=== PATIENT | female | born 1950 | race Caucasian/White ===

== ENCOUNTER 2017-01-27 09:07 | Inpatient (IN) | payer OTHER ==
[~2017-01-27 09:07] MED LIST: BUPIVACAINE HCL/PF 0.5% (5MG/ML) 10 ML VIAL IJ ONE
[2017-01-27 09:14] VITALS: BMI 52.4
[2017-01-27] MEDS ORDERED: ACETAMINOPHEN INJECTION 100 ML IVPB ONE ×2 (09:44→23:00)
[2017-01-27] MEDS ORDERED: morphine CARPU-JECT 4 MG/1 ML DISP.SYRIN IVPUSH ONE ×2 (09:47→11:36)
[2017-01-27] MEDS ORDERED: ONDANSETRON 4 MG/2 ML VIAL IVPUSH ONE (09:51)
[2017-01-27] MEDS ORDERED: SODIUM CHLORIDE 0.9% 1000 ML INFUS.BAG IV ONE ×2 (09:51→12:40)
[2017-01-27 09:56] LABS: MCH 29.5 pg (25.7-33.7); MCHC 34.6 g/dl (32.0-36.0); MEAN CELL VOLUME 85.3 fl (80-96); MEAN PLT VOLUME 9.2 fl (7.5-11.1); NEUTROPHILS 81.5 % (42.8-82.8); PLATELET COUNT 221 K/MM3 (134-434); RDW 14.6 % (11.6-15.6); WHITE BLOOD COUNT 13.3 K/mm3 (4.0-10.8)
--- NOTE | 2017-01-27 09:59 | PDOC ---
History of Present Illness - General Chief Complaint: Pain, Acute Stated Complaint: abd pain Time Seen by Provider: 01/27/17 09:11 History Source: Patient Exam Limitations: No Limitations - History of Present Illness Initial Comments: 01/27/17 09:55 The patient is a 66F with a PMH of DM who presents with abdominal pain. The patient states that she had 4 day old telugu food on Friday and subsequently felt worse. She states that she had breakfast Friday and felt fine, then around 2 pm she began to pee a lot and was passing solid stool. Soon after this , she began having diarrhea and was vomiting everything that she tried to eat/ drink. She was unable to swallow her meds. LBM last night, has not been passing gas. She has no sick contacts and no recent travel. Surg: omental mass removal in 2011 All: NKDA, father w/ severe reaction to PCN Social: does not smoke, drink, use recreational drugs; lives alone Severity: mild Past History - Past Medical History Allergies/Adverse Reactions: Allergies Allergy/AdvReac Type Severity Reaction Status Date / Time Penicillins Allergy Unknown Verified 01/27/17 16:52 Home Medications: Ambulatory Orders Aspirin Coated [Ecotrin] 325 mg PO DAILY 03/24/12 Losartan Potassium 50 mg PO DAILY 04/06/12 Metformin HCl [Glucophage] 1,000 mg PO BID 04/06/12 D3-5000 5,000 iu PO DAILY 01/27/17 Anemia: No Asthma: No Cancer: Yes (ABDOMINAL GROWTH) Cardiac Disorders: No CVA: No COPD: No CHF: No Dementia: No Diabetes: Yes GI Disorders: Yes (ABDOMINAL LESION) Disorders: No HTN: Yes Hypercholesterolemia: No Liver Disease: No Seizures: No Thyroid Disease: No - Surgical History Abdominal Surgery: Yes (HERNIA REPAIRED AND CANCEROUS GROWTH REMOVED FROM FATTY TISSUE IN ABDOMEN) Appendectomy: No Cardiac Surgery: No Cholecystectomy: No Lung Surgery: No Neurologic Surgery: No Orthopedic Surgery: No - Psycho/Social/Smoking Cessation Hx Anxiety: No Suicidal Ideation: No Smoking Status: No Smoking History: Former smoker Have you smoked in the past 12 months: No Number of Cigarettes Smoked Daily: 0 If you are a former smoker, when did you quit?: 42 YEARS Information on smoking cessation initiated: No Hx Alcohol Use: No Drug/Substance Use Hx: No Substance Use Type: None Hx Substance Use Treatment: No Review of Systems - Review of Systems Able to Perform ROS?: Yes Is the patient limited French proficient: No Constitutional: Yes: Chills, Fever. No: Night Sweats Respiratory: No: Cough, Shortness of Breath, Productive cough Cardiac (ROS): No: Chest Pain, Lightheadedness ABD/GI: Yes: Diarrhea, Nausea, Vomiting, Abdominal cramping. No: Constipated, Difficulty Swallowing : Yes: Other (polyuria). No: Burning, Dysuria, Discharge Neurological: No: Headache, Numbness, Tingling, Weakness *Physical Exam - Vital Signs Last Vital Signs Temp Pulse Resp BP Pulse Ox 98.1 F 92 H 20 156/95 95 01/27/17 09:08 01/27/17 09:43 01/27/17 09:43 01/27/17 09:43 01/27/17 09:43 - Physical Exam General Appearance: Yes: Nourished, Mild Distress, Obese HEENT: positive: Normal Voice, Hearing Grossly Normal Respiratory/Chest: positive: Lungs Clear, Normal Breath Sounds. negative: Chest Tender, Respiratory Distress, Accessory Muscle Use Cardiovascular: positive: Regular Rhythm, S1, S2, Tachycardia. negative: Diastolic Murmur, Systolic Murmur Gastrointestinal/Abdominal: positive: Tender, Tenderness, Other (R periumbilical mass that is tender. Tenderness on McBurney's point. RUQ diffuse tenderness.). negative: Flat, Soft, Distended, Guarding, Rebound Extremity: positive: Pedal Edema (2+ b/l LE), Swelling. negative: Calf Tenderness Integumentary: positive: Warm, Clammy Neurologic: positive: Fully Oriented, Alert, Normal Mood/Affect, Motor Strength 5/5 ED Treatment Course - LABORATORY CBC & Chemistry Diagram: 01/29/17 07:20 01/29/17 07:20 - ADDITIONAL ORDERS Additional order review: Laboratory Results 01/27/17 09:18 POC Glucometer [id number] 01/27/17 09:18 POC Glucometer [id number] - RADIOLOGY Radiology Studies Ordered: Category Date Time Status CHEST X-RAY PORTABLE* [RAD] Stat Radiology 01/27/17 09:47 Ordered Medical Decision Making - Medical Decision Making 01/27/17 10:02 The patient is a 66F with a PMH of DM who presents with abdominal pain. Fingerstick is 248. The patient has diffuse tenderness in her abdomen, particularly over the mass in her L periumbilical abdomen, McBurney's point, and the RUQ. I have ordered labs and imaging and will reassess the patient when these return. 01/27/17 10:37 WBC Count 13.3. Cr WNL, will order abd and pelvis CT w/ IV contrast. 01/27/17 12:[address] abd shows hernia that is questionably incarcerated. Dr. Fritz wanted Dr. Foster called for the gen surg consult. Call has been placed. 01/27/17 13:[address] Foster again[address] Beaulieu who is technology methodology consultant was paged. 01/27/17 13:23 I have paged the surgeon technology methodology consultant, Dr. Jimenez. *DC/Admit/Observation/Transfer Diagnosis at time of Disposition: Hernia - Discharge Dispostion Condition at time of disposition: Stable Admit: Yes - Referrals
[2017-01-27] MEDS ORDERED: ONDANSETRON 4 MG/2 ML VIAL ONE ×3 (10:01→22:12)
[2017-01-27] MEDS ORDERED: morphine CARPU-JECT 4 MG/1 ML DISP.SYRIN ONE ×3 (10:01→11:49)
[2017-01-27 10:05] LABS: ALBUMIN 3.8 g/dl (3.5-5.0); ALK PHOS 72 U/L (32-92); ANION GAP 10 (8-16); BILIRUBIN,TOTAL 1.1 mg/dl (0.2-1.0); CALCIUM 9.8 mg/dl (8.4-10.2); CO2 31 mmol/L (22-28); CREATININE 0.8 mg/dl (0.6-1.3); GLUCOSE,RANDOM 252 mg/dl (74-106); SGOT/AST 31 U/L (10-42); SGPT/ALT 25 U/L (10-40); TOT PROT 7.2 g/dl (6.4-8.3)
[2017-01-27 11:03] LABS: TROPONIN I (DFP) 0.03 ng/ml (0.03-0.50)
--- NOTE | 2017-01-27 11:10 | PDOC ---
Attending Attestation - Resident Resident Name: Jordi Stinson - ED Attending Attestation I have performed the following: I have examined & evaluated the patient, The case was reviewed & discussed with the resident, I agree w/resident's findings & plan, Exceptions are as noted - HPI HPI: 01/27/17 11:07 Agree with the resident's HPI as documented in the electronic medical record. - Physicial Exam PE: 01/27/17 11:07 Agree with the resident's physical examination as documented in the electronic medical record. - Medical Decision Making 01/27/17 11:08 66-year-old female with history of diabetes, hypertension and an omental mass removed in 2011 who presents the emergency Department with complaints of 3 day history of nausea, vomiting and diarrhea with obstipation since midnight; of note the oxygen saturation is 92% on room air. Physical exam is significant for a mid abdominal mass and diffuse tenderness. Differential diagnosis includes but is not limited to: Incarcerated hernia, malignancy, abscess, gastroenteritis , colitis, diverticulitis, Colace cystitis, dehydration, DKA, toxic/metabolic derangement, electrolyte abnormality, atypical presentation of ACS. Plan: 1. Labs 2. Urine analysis 3. Chest x-ray 4. CT scan of abdomen and pelvis 5. IV fluids for hydration 6. Antiemetics 7. Pain management 8. EKG 9. Observe and reevaluate 01/27/17 13:33 Addendum: Labs were reviewed and are noted inthe EMR. CT scan of the abdomen and pelvis reveals a large hernia not seen on prior CT scan. PCP has been called and Dr. Foster requested however we are haviong some difficulty getting in touch with Dr. Foster in spite of numerous pages. Dr. Jimenez has now been paged and we are awaiting his call back.
[2017-01-27 11:43] LABS: URINE APPEARANCE Clear; URINE BILIRUBIN Negative (NEGATIVE); URINE BLOOD Negative (NEGATIVE); URINE GLUCOSE (UA) Negative (NEGATIVE); URINE KETONE Negative (NEGATIVE); URINE LEUK ESTERASE Negative (NEGATIVE); URINE NITRITE Negative (NEGATIVE); URINE PROTEIN Negative (NEGATIVE); URINE UROBILINOGEN 0.2 (0.2-1.0)
[2017-01-27 11:44] LABS: URINE COLOR YELLOW
[2017-01-27] MEDS ORDERED: METRONIDAZOLE 500 MG PREMIXED 100 ML IVPB ONE ×2 (13:36→13:38)
[2017-01-27] MEDS ORDERED: CEFTRIAXONE 1,000 MG in DEXTROSE 5%-WATER - 50 ML IVPB ONE (13:36)
[2017-01-27] MEDS ORDERED: cefTRIAXone SODIUM 1 GM VIAL ONE (13:38)
--- NOTE | 2017-01-27 13:48 | HP ---
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 patient reports on Friday, January 25, 2017, she developed nausea and vomiting. At first, she attributed her symptoms to food poisoning. However, on Friday, January 26, she reports ongoing nausea, decreased appetite with diarhera. She reports awaking this AM with severe abdominal pain and vomiting. As a result, she sought evaluation in the emergency department. ER course was notable for: (1) ct scan of abd/pelvis large midline umbilical/infraumbilical hernia, containing the middle third of the transverse colon (2) ct of chest no pericardial effusion, mild bilateral lower lung field linar parenchymal scarring. (3) lactic acid 3.7 Recent Travel: none PAST MEDICAL HISTORY: NIDDM, ventral hernial with colonic obstruction, intra PAST SURGICAL HISTORY: hysterectomy, ventral hernia/colonic obstruction, repair with intra-abdominal tumor resection. Social History: employed office support associate, resides at home Smoking: none Alcohol:none Drugs: none Family History: none contributory Allergies Penicillins Allergy-->no history of pcn allergy, always declined pcn due to her father's severe pcn allergy (Unknown, Verified 01/27/17 09:08) HOME MEDICATIONS: Home Medications Medication Instructions Recorded Aspirin Coated [Ecotrin] 325 mg PO DAILY 03/24/12 Losartan Potassium 50 mg PO DAILY 04/06/12 Metformin HCl [Glucophage] 1,000 mg PO BID 04/06/12 REVIEW OF SYSTEMS CONSTITUTIONAL: Absent: fever, chills, diaphoresis, generalized weakness, malaise, loss of appetite, weight change HEENT: Absent: rhinorrhea, nasal congestion, throat pain, throat swelling, difficulty swallowing, mouth swelling, ear pain, eye pain, visual changes CARDIOVASCULAR: Absent: chest pain, syncope, palpitations, irregular heart rate, lightheadedness , peripheral edema RESPIRATORY: Absent: cough, shortness of breath, dyspnea with exertion, orthopnea, wheezing, stridor, hemoptysis GASTROINTESTINAL: Present: abdominal pain, abdominal distension, nausea, vomiting, Absent: diarrhea, constipation, melena, hematochezia GENITOURINARY: Absent: dysuria, frequency, urgency, hesitancy, hematuria, flank pain, genital pain MUSCULOSKELETAL: Absent: myalgia, arthralgia, joint swelling, back pain, neck pain SKIN: Absent: rash, itching, pallor HEMATOLOGIC/IMMUNOLOGIC: Absent: easy bleeding, easy bruising, lymphadenopathy, frequent infections ENDOCRINE: Absent: unexplained weight gain, unexplained weight loss, heat intolerance, cold intolerance NEUROLOGIC: Absent: headache, focal weakness or paresthesias, dizziness, unsteady gait, seizure, mental status changes, bladder or bowel incontinence PSYCHIATRIC: Absent: anxiety, depression, suicidal or homicidal ideation, hallucinations. PHYSICAL EXAMINATION Vital Signs - 24 hr 01/27/17 01/27/17 01/27/17 09:08 09:43 11:39 Temperature 98.1 F Pulse Rate 100 H Pulse Rate [ 92 H 96 H Right] Respiratory 24 20 Rate Blood Pressure 178/94 Blood Pressure 156/95 143/93 [Left Arm] O2 Sat by Pulse 93 L 95 96 Oximetry (%) 01/27/17 01/27/17 01/27/17 12:40 12:41 12:51 Temperature 99.7 F H Pulse Rate Pulse Rate [ 103 H Right] Respiratory 20 Rate Blood Pressure 137/94 Blood Pressure 137/94 [Left Arm] O2 Sat by Pulse 96 Oximetry (%) GENERAL: Awake, alert, and fully oriented, in no acute distress. HEAD: Normal with no signs of trauma. EYES: Pupils equal, round and reactive to light, extraocular movements intact, sclera anicteric, conjunctiva clear. No lid lag. EARS, NOSE, THROAT: Ears normal, nares patent, oropharynx clear without exudates. dry mucous membranes. NECK: Normal range of motion, supple without lymphadenopathy, JVD, or masses. LUNGS: Breath sounds equal, clear to auscultation bilaterally. No wheezes, and no crackles. No accessory muscle use. HEART: Regular rate and rhythm, normal S1 and S2 without murmur, rub or gallop. ABDOMEN: Soft, right upper quadrant abdominal tenderness, non reducible hernia noted to the right upper quadrant, distended, + hyperactive bowel sounds to right and left upper quadrants only, + guarding, no masses. No hepatomegaly or splenomegaly. MUSCULOSKELETAL: Normal range of motion at all joints. No bony deformities or tenderness. No CVA tenderness. UPPER EXTREMITIES: 2+ pulses, warm, well-perfused. No cyanosis. No clubbing. No peripheral edema. LOWER EXTREMITIES: 2+ pulses, warm, well-perfused. No calf tenderness. No peripheral edema. NEUROLOGICAL: Cranial nerves II-XII intact. Normal speech. Normal gait. PSYCHIATRIC: Cooperative. Good eye contact. Appropriate mood and affect. SKIN: Warm, dry, normal turgor, no rashes or lesions noted, normal capillary refill. Laboratory Results - last 24 hr CBC WBC 13.3 K/mm3 (4.0-10.8) H D 01/27/17 09:38 RBC 4.84 M/mm3 (3.60-5.2) D 01/27/17 09:38 Hgb 14.3 GM/dl (10.7-15.3) D 01/27/17 09:38 Hct 41.3 % (32.4-45.2) 01/27/17 09:38 MCV 85.3 fl (80-96) 01/27/17 09:38 MCH 29.5 pg (25.7-33.7) 01/27/17 09:38 MCHC 34.6 g/dl (32.0-36.0) 01/27/17 09:38 RDW 14.6 % (11.6-15.6) D 01/27/17 09:38 Plt Count 221 K/MM3 (134-434) D 01/27/17 09:38 MPV 9.2 fl (7.5-11.1) 01/27/17 09:38 Neutrophils % 81.5 % (42.8-82.8) 01/27/17 09:38 Lymphocytes % 8.8 % (8-40) 01/27/17 09:38 Monocytes % 7.7 % (3.8-10.2) 01/27/17 09:38 Eosinophils % 0.0 % (0-4.5) D 01/27/17 09:38 Basophils % 2.0 % (0-2.0) D 01/27/17 09:38 CMP Sodium 135 mmol/L (136-145) L 01/27/17 09:38 Potassium 4.0 mmol/L (3.5-5.1) 01/27/17 09:38 Chloride 94 mmol/L (98-107) L 01/27/17 09:38 Carbon Dioxide 31 mmol/L (22-28) H 01/27/17 09:38 Anion Gap 10 (8-16) 01/27/17 09:38 BUN 13 mg/dl (7-18) D 01/27/17 09:38 Creatinine 0.8 mg/dl (0.6-1.3) D 01/27/17 09:38 Creat Clearance w eGFR > 60 (>60) 01/27/17 09:38 POC Glucometer [id number] UNITS (()) 01/27/17 09:18 Random Glucose 252 mg/dl (74-106) H D 01/27/17 09:38 Lactic Acid 3.7 mmol/L (0.4-2.0) H* 01/27/17 09:50 Calcium 9.8 mg/dl (8.4-10.2) 01/27/17 09:38 Total Bilirubin 1.1 mg/dl (0.2-1.0) H 01/27/17 09:38 AST 31 U/L (10-42) D 01/27/17 09:38 ALT 25 U/L (10-40) 01/27/17 09:38 Alkaline Phosphatase 72 U/L (32-92) 01/27/17 09:38 Creatine Kinase 193 IU/L (26-192) H 01/27/17 09:50 Creatine Kinase Index 6.5 % (0.0-5.0) H* 01/27/17 09:50 CK-MB (CK-2) 12.6 ng/mL (0.3-4.0) H 01/27/17 09:50 Troponin I 0.03 ng/ml (0.03-0.50) 01/27/17 09:50 B-Natriuretic Peptide 437.33 pg/ml (5-125) H 01/27/17 09:50 Total Protein 7.2 g/dl (6.4-8.3) 01/27/17 09:38 Albumin 3.8 g/dl (3.5-5.0) D 01/27/17 09:38 Lipase < 20 U/L (22-51) L 01/27/17 09:50 ASSESSMENT/PLAN: 1) incarcerated umbilical/intraumbical hernia - NPO-->IVF 1/2 NS @125ml/hr - prn morphine - lactic acid elevated, 2 liters ns ordered, pending repeat lactic acid - leukocytosis, low grade temp noted, continue rocephin and flagyl for empiric coverage - case discussed with Dr Calvin, general surgeon, at bedside, pt is pending OR today 2) hypertension - hold loosartan, secondary to patient's npo status - will order prn lopressor, strict b/p monitoring - ekg nsr inverted t waves to lead III, unchanged from prior ekg 2011 3) niddm - hold metformin, start fingersticks achs when pt is cleared by surgery for clears - pending hgb a1c f/e/n - npo - replete lytes prn ppx - hold ac pending or - pepcid - scd/kirk - oob *pt is medically optimized for surgery dispo: requires inpatient admission Problem List - Problem (1) Incarcerated hernia Code(s): K46.0 - UNSP ABDOMINAL HERNIA WITH OBSTRUCTION, WITHOUT GANGRENE (2) Lactic acid acidosis Code(s): E87.2 - ACIDOSIS (3) Hypertension Code(s): I10 - ESSENTIAL (PRIMARY) HYPERTENSION Visit type - Emergency Visit Emergency Visit: Yes ED Registration Date: 01/27/17 Care time: The patient presented to the Emergency Department on the above date and was hospitalized for further evaluation of their emergent condition. - New Patient This patient is new to me today: Yes Date on this admission: 01/27/17 - Critical Care Critical Care patient: No
[2017-01-27] MEDS ORDERED: SODIUM CHLORIDE 0.45% 1,000 ML IV SCH ×2 (14:00→23:35)
[2017-01-27] MEDS ORDERED: METOPROLOL TARTRATE 5 MG/5 ML VIAL IVPUSH PRN ×2 (14:55→23:35)
[2017-01-27] MEDS ORDERED: morphine CARPU-JECT 4 MG/1 ML DISP.SYRIN IVPUSH PRN ×2 (15:14→23:35)
[2017-01-27 15:29] LABS: INR 1.04 (0.82-1.09); PROTHROMBIN TIME (PATIENT) 11.6 SEC (10.2-13.0)
[2017-01-27] MEDS ORDERED: MIDAZOLAM HCL 2 MG/2 ML SINGLE DOSE VIAL ONE ×2 (15:45→22:23)
[2017-01-27] MEDS ORDERED: PROPOFOL 20 ML ONE ×3 (15:49→18:11)
[2017-01-27] MEDS ORDERED: ROCURONIUM BROMIDE 50 MG/5 ML VIAL ONE ×2 (15:51→18:14)
[2017-01-27] MEDS ORDERED: METRONIDAZOLE 500 MG PREMIXED 100 ML IVPB SCH (18:00)
[2017-01-27] MEDS ORDERED: DESFLURANE GAS 240 ML BOTTLE IH ONE (18:30)
--- NOTE | 2017-01-27 18:38 | CONSULT ---
- Consultation REQUESTING PROVIDER: Ayah Metzger MD CONSULT REQUEST: We have been asked to surgically evaluate this patient for ( specify). PCP:Milad Valdez HISTORY OF PRESENT ILLNESS:ANA who is a 66 y/o white femal who presented w/ 2 days of abdominal pain and a ? new onset painful abdominal mass; she came to the ER for evaluation b/o the pain and inability to eat and take her oral meds. PMHx: NIDDM;COPD PSHx: ex-lap;abdominal hernia repair and resection of ? metastatic ? ovarian cancer and repair of recurrent hernia. lap ALLEN-BSO Home Medications Medication Instructions Recorded Aspirin Coated [Ecotrin] 325 mg PO DAILY 03/24/12 Losartan Potassium 50 mg PO DAILY 04/06/12 Metformin HCl [Glucophage] 1,000 mg PO BID 04/06/12 D3-5000 5,000 iu PO DAILY 01/27/17 Allergies Allergy/AdvReac Type Severity Reaction Status Date / Time Penicillins Allergy Unknown Verified 01/27/17 16:52 PHYSICAL EXAM: GENERAL: Awake, alert, and fully oriented, in slight distress. HEAD: Normal with no signs of trauma. EYES: sclera anicteric, conjunctiva clear. NECK: Normal ROM, supple without lymphadenopathy, JVD, or masses. ABDOMEN: Soft,tender over palpable incarcerated hernia; skin is normal in color , not distended, absent bowel sounds, guarding is present no rebound. No organomegaly. MUSCULOSKELETAL: Normal ROM at all joints. No bony deformities or tenderness. No CVA tenderness. UPPER EXTREMITIES: 2+ pulses, warm, well-perfused. No cyanosis. Cap refill <2 seconds. No peripheral edema. LOWER EXTREMITIES: 2+ pulses, warm, well-perfused. No calf tenderness. No peripheral edema. NEUROLOGICAL: Normal speech, gait not observed. PSYCH: Cooperative. Good eye contact. Appropriate mood and affect. SKIN: Warm, dry, normal turgor, no rashes or lesions noted. Vital Signs Temperature 98.3 F 01/27/17 17:10 Pulse Rate 100 H 01/27/17 17:10 Respiratory Rate 20 01/27/17 17:10 Blood Pressure 149/70 01/27/17 17:10 O2 Sat by Pulse Oximetry (%) 97 01/27/17 17:23 Lab Results WBC 13.3 K/mm3 (4.0-10.8) H D 01/27/17 09:38 RBC 4.84 M/mm3 (3.60-5.2) D 01/27/17 09:38 Hgb 14.3 GM/dl (10.7-15.3) D 01/27/17 09:38 Hct 41.3 % (32.4-45.2) 01/27/17 09:38 MCV 85.3 fl (80-96) 01/27/17 09:38 MCHC 34.6 g/dl (32.0-36.0) 01/27/17 09:38 RDW 14.6 % (11.6-15.6) D 01/27/17 09:38 Plt Count 221 K/MM3 (134-434) D 01/27/17 09:38 Sodium 135 mmol/L (136-145) L 01/27/17 09:38 Potassium 4.0 mmol/L (3.5-5.1) 01/27/17 09:38 Chloride 94 mmol/L (98-107) L 01/27/17 09:38 Carbon Dioxide 31 mmol/L (22-28) H 01/27/17 09:38 Anion Gap 10 (8-16) 01/27/17 09:38 BUN 13 mg/dl (7-18) D 01/27/17 09:38 Creatinine 0.8 mg/dl (0.6-1.3) D 01/27/17 09:38 Random Glucose 252 mg/dl (74-106) H D 01/27/17 09:38 Calcium 9.8 mg/dl (8.4-10.2) 01/27/17 09:38 INR 1.04 (0.82-1.09) 01/27/17 14:56 CT scan a/p reviewed IMP: Incarcerated recurrent incisional/ventral hernia. PLAN: Repair w/possible mesh; possible bowel resection and AOSDN; d/w her possible recurrence; wound infection; ICU care post op; informed consent was obtained; d/w the patients son Son as well. Eugenio Calvin MD FACS Visit type - Case Type Case Type: ED Admission - Emergency Emergency Visit: Yes ED Registration Date: 01/27/17 Care time: The patient presented to the Emergency Department on the above date and was hospitalized for further evaluation of their emergent condition. - New patient This patient is new to me today: Yes Date on this admission: 01/27/17 - Critical Care Critical Care patient: No
[2017-01-27] MEDS ORDERED: BUPIVACAINE HCL/PF 0.5% (5MG/ML) 10 ML VIAL ONE (19:14)
--- NOTE | 2017-01-27 19:14 | EKG ---
Test Reason : Blood Pressure : / mmHG Vent. Rate : 088 BPM Atrial Rate : 088 BPM P-R Int : 196 ms QRS Dur : 098 ms QT Int : 356 ms P-R-T Axes : 036 015 006 degrees QTc Int : 430 ms POOR DATA QUALITY, INTERPRETATION MAY BE ADVERSELY AFFECTED NORMAL SINUS RHYTHM NORMAL ECG WHEN COMPARED WITH ECG OF 13-MAR-2001 13:03, NO SIGNIFICANT CHANGE WAS FOUND Confirmed by ERIKA HUSAIN, JOSSY ([id number]) on 01/27/2017 7:14:37 PM Referred By: ARISTEO Confirmed By:JOSSY JAMES MD
[2017-01-27] MEDS ORDERED: NEOSTIGMINE METHYLSULFATE 0.5 MG/ML - 10 ML MDV ONE (19:21)
[2017-01-27] MEDS ORDERED: DEXAMETHASONE SOD PHOSPHATE 4 MG/1 ML VIAL ONE (19:21)
[2017-01-27] MEDS ORDERED: PHENYLEPHRINE HCL 10 MG/1 ML SINGLE DOSE VIAL ONE (19:21)
[2017-01-27] MEDS ORDERED: HYDROmorphone HCL/PF 1 MG/ML VIAL (FOR PYXIS CHARGING ONLY) ONE ×2 (19:23→20:40)
[2017-01-27] MEDS ORDERED: ACETAMINOPHEN 1000 MG/100 ML VIAL (NON FORMULARY) IVPB PRN ×2 (21:53→22:02)
--- NOTE | 2017-01-27 21:54 | OP ---
Operative Note - Note: Operative Date: 01/27/17 Pre-Operative Diagnosis: incarecerated incisional hernia Operation: repair incarcerated incisional hernia w/mesh Findings: inacercerated but viable transverse colon in hernia Surgeon: Eugenio Calvin Color Worker: Yimi Lerma Anesthesia: General Specimens Removed: old mesh;sac;sutures Estimated Blood Loss (mls): 150 Drains & Tubes with Location: 10 mm ASHLEY x2 Operative Report Dictated: Yes
--- NOTE | 2017-01-27 21:56 | SURG ---
Surgery First Line Production Supervisor Note First Line Production Supervisor: Yimi Lerma PA-C Date of Service: 01/27/17 Diagnosis: incarcerated incisional hernia Procedure: Repair incarcerated incisional hernia w/mesh, Lysis of adhesions I was present for the entirety of the operative procedure. For further detail, please refer to operative report. Visit type - Case Type Case Type: ED Admission - Emergency Emergency Visit: Yes ED Registration Date: 01/27/17 Care time: The patient presented to the Emergency Department on the above date and was hospitalized for further evaluation of their emergent condition. - New patient This patient is new to me today: Yes Date on this admission: 01/27/17
[2017-01-27] MEDS ORDERED: LACTATED RINGERS SOLUTION 1,000 ML IV SCH ×2 (22:00→23:15)
[2017-01-27] MEDS ORDERED: FAMOTIDINE 20 MG/50 ML IVPB 50 ML IVPB SCH (22:00)
[2017-01-27] MEDS ORDERED: FLUMAZENIL 0.5 MG/5 ML VIAL ONE (22:29)
[2017-01-27] MEDS ORDERED: HYDROmorphone HCL CARPU-JECT 1 MG/1 ML DISP.SYRIN IVPUSH PRN (23:07)
[2017-01-27] MEDS ORDERED: ACETAMINOPHEN 1000 MG/100 ML VIAL (NON FORMULARY) IVPB ONE (23:09)
[2017-01-27] MEDS ORDERED: ALBUTEROL SO4 0.083% IH SOL 2.5 MG/3 ML VIAL.NEB. NEB PRN (23:10)
[2017-01-28 00:09] LABS: ANION GAP 8 (8-16); CALCIUM 8.6 mg/dL (8.5-10.1); CO2 32 mmol/L (21-32); CREATININE 0.9 mg/dL (0.55-1.02); GLUCOSE,RANDOM 261 mg/dL (74-106)
--- NOTE | 2017-01-28 01:11 | CONSULT ---
Consult Consult Specialty:: Pulm/Critical care Referred by:: Nikunj Reason for Consultation:: Post operative care - History of Present Illness Chief Complaint: Abdominal pain History of Present Illness: 66 y/o female with a past medical history of hypertension, NIDDM, ventral hernia/colonic obstruction with removal of intra-abdominal tumor (low grade serrous carcinoma in 2011), ALLEN/BSO. On Friday, January 25, 2017, she developed nausea and vomiting initially attributed to food poisining however she continued to have ongoing nausea, vomiting, diarrhea, anorexia and abd pain through the weekend. She presented this AM to the ED for further care; CT upon admission revealed incarcerated hernia. She was admitted today for surgical repair. - History Source History Provided By: Patient Limitations to Obtaining History: Uncooperative - Past Medical History Cardio/Vascular: Yes: HTN Gastrointestinal: Yes: Other (Omental mass) ...: No Endocrine: Yes: Diabetes Mellitus - Past Surgical History Past Surgical History: Yes: Hysterectomy Additional Surgical History: Ex lap for Omental Mass 2011 - Alcohol/Substance Use Hx Alcohol Use: No - Smoking History Smoking history: Former smoker Have you smoked in the past 12 months: No Aproximately how many cigarettes per day: 0 If you are a former smoker, when did you quit?: 42 YEARS - Social History Usual Living Arrangement: Alone (2 indoor cats, 1 outdoor cat) Home Medications - Allergies Allergies/Adverse Reactions: Allergies Allergy/AdvReac Type Severity Reaction Status Date / Time Penicillins Allergy Unknown Verified 01/27/17 16:52 - Home Medications Home Medications: Ambulatory Orders Aspirin Coated [Ecotrin] 325 mg PO DAILY 03/24/12 Losartan Potassium 50 mg PO DAILY 04/06/12 Metformin HCl [Glucophage] 1,000 mg PO BID 04/06/12 D3-5000 5,000 iu PO DAILY 01/27/17 Family Disease History - Family Disease History Family Disease History: Other: Father (severe PCN allergy) Review of Systems - Review of Systems Constitutional: reports: Loss of Appetite Eyes: reports: No Symptoms HENT: reports: Nasal Congestion Neck: reports: No Symptoms Cardiovascular: reports: No Symptoms Respiratory: reports: No Symptoms Gastrointestinal: reports: Abdominal Pain, Diarrhea, Nausea, Vomiting Genitourinary: reports: No Symptoms Breasts: reports: No Symptoms Reported Musculoskeletal: reports: No Symptoms Integumentary: reports: No Symptoms Neurological: reports: No Symptoms Endocrine: reports: No Symptoms Hematology/Lymphatic: reports: No Symptoms Psychiatric: reports: No Symptoms Physical Exam Vital Signs: Vital Signs Temperature 98.8 F 01/28/17 00:37 Pulse Rate 111 H 01/28/17 00:37 Respiratory Rate 12 01/28/17 00:37 Blood Pressure 123/88 01/28/17 00:37 O2 Sat by Pulse Oximetry (%) 91 L 01/28/17 00:56 Constitutional: Yes: Well Nourished, Anxious, Obese Eyes: Yes: WNL HENT: Yes: Other (Dry oral mucosa, missing teeth.) Neck: Yes: WNL Cardiovascular: Yes: Tachycardia, Pulse Irregular, S1, S2 Respiratory: Yes: Diminished (Moderately labored breathing pattern. Difficulty completing sentences at times) Gastrointestinal: Yes: Soft, Abdomen, Obese, Hypoactive Bowel Sounds, Tenderness ...Rectal Exam: Yes: Deferred Breast(s): Yes: WNL Musculoskeletal: Yes: WNL Extremities: Yes: WNL Edema: Yes Edema: LLE: 1+, RLE: 1+ Peripheral Pulses WNL: (weak) Wound/Incision: Yes: Clean/Dry, Dressing Dry and Intact, Other (ASHLEY drain with bloody drainage fluid) Neurological: Yes: Alert, Oriented ...Motor Strength: WNL Psychiatric: Yes: Agitated, Other (uncooparativ) Labs: CBC, BMP 01/27/17 23:15 CBC WBC 13.3 K/mm3 (4.0-10.8) H D 01/27/17 09:38 RBC 4.84 M/mm3 (3.60-5.2) D 01/27/17 09:38 Hgb 14.3 GM/dl (10.7-15.3) D 01/27/17 09:38 Hct 41.3 % (32.4-45.2) 01/27/17 09:38 MCV 85.3 fl (80-96) 01/27/17 09:38 MCH 29.5 pg (25.7-33.7) 01/27/17 09:38 MCHC 34.6 g/dl (32.0-36.0) 01/27/17 09:38 RDW 14.6 % (11.6-15.6) D 01/27/17 09:38 Plt Count 221 K/MM3 (134-434) D 01/27/17 09:38 MPV 9.2 fl (7.5-11.1) 01/27/17 09:38 Neutrophils % 81.5 % (42.8-82.8) 01/27/17 09:38 Lymphocytes % 8.8 % (8-40) 01/27/17 09:38 Monocytes % 7.7 % (3.8-10.2) 01/27/17 09:38 Eosinophils % 0.0 % (0-4.5) D 01/27/17 09:38 Basophils % 2.0 % (0-2.0) D 01/27/17 09:38 Hepatic Panel Total Bilirubin 1.1 mg/dl (0.2-1.0) H 01/27/17 09:38 AST 31 U/L (10-42) D 01/27/17 09:38 ALT 25 U/L (10-40) 01/27/17 09:38 Alkaline Phosphatase 72 U/L (32-92) 01/27/17 09:38 Albumin 3.8 g/dl (3.5-5.0) D 01/27/17 09:38 Imaging - Results Chest X-ray: Report Reviewed Cat Scan: Report Reviewed EKG: Report Reviewed (NSR HR 88, QTc 430) Problem List - Problems (1) Hernia Code(s): K46.9 - UNSPECIFIED ABDOMINAL HERNIA WITHOUT OBSTRUCTION OR GANGRENE Assessment/Plan Ms. Ness is a 66 yo woman with history of DM2, HTN and previous ex lap for omental mass who presented after 2 days of nausea, vomiting, diarrhea and progressively worsening abdominal pain; CT imaging revealed incarcerated hernia ; taken to OR today for hernia repair and is now admitted to ICU for further care and treatment. Resp: mild hypoxia with increased WOB post extubation in OR. Pt. was reportedly dyspnic with RA sat 92 upon presentation to ER. Concern for underlying obstructive lung disease (SHIRA, obesity related hypoventalation) vs. pneumonia vs. PE. CT suggestive of poss pulm HTN. -continue supplemental O2 via ventimask for goal sat >92% -attempted BiPAP which pt ripped off immediately and refused to wear -IS, pulm toilet, early mobilization -check CXR, abg in AM -albuterol/atrovent -dvt prophy -consider venous dopplers to eval for DVT given immobility and dehydration CV: hx HTN, mild lactic acidosis, tachycardia -hold HTN meds for now -repeat lactate in AM -EKG, consider echo Endo: DM2 on oral meds -hold oral DM medications -fingersticks q 4 hours while NPO GI: post hernia repair -NPO for now -famotidine for GI prophy -gentle hydration -bowel reg when taking PO Heme: -CBC in AM -DVT prophy Molly Hoffman, JIEP Critical Care Time/MDM Note Total Critical Care Time: 36 Critical Care Statement: The care of this patient involved high complexity decision making to prevent further life threatening deterioration of the patient 's condition and/or to evaluate & treat vital organ system(s) failure or risk of failure.
[2017-01-28] MEDS: HEPARIN NA (PORCINE) 5,000 UNITS/ML 1ML VIAL SQ SCH ×4 (01:57→21:15)
[2017-01-28 06:28] LABS: MCH 30.2 pg (25.7-33.7); MCHC 32.3 g/dl (32.0-36.0); MEAN CELL VOLUME 93.4 fl (80-96); PLATELET COUNT 196 K/MM3 (134-434); RDW 16.2 % (11.6-15.6); WHITE BLOOD COUNT 14.1 K/mm3 (4.0-10.0)
[2017-01-28 07:05] LABS: ANION GAP 5 (8-16); CALCIUM 8.1 mg/dL (8.5-10.1); CO2 36 mmol/L (21-32); CREATININE 0.8 mg/dL (0.55-1.02); GLUCOSE,RANDOM 251 mg/dL (74-106)
--- NOTE | 2017-01-28 08:23 | PN ---
Physical Exam: SUBJECTIVE: Patient seen and examined OBJECTIVE: Vital Signs Period Temp Pulse Resp BP Sys/Desai Pulse Ox Last 24 Hr 98 F-993 F 93-133 12-25 96-154/49-88 90-97 GENERAL: The patient is awake, alert, and fully oriented, in no acute distress. HEAD: Normal with no signs of trauma. EYES: PERRL, extraocular movements intact, sclera anicteric, conjunctiva clear. No ptosis. ENT: Ears normal, nares patent, oropharynx clear without exudates, moist mucous membranes. NECK: Trachea midline, full range of motion, supple. LUNGS: Breath sounds equal, clear to auscultation bilaterally, no wheezes, no crackles, no accessory muscle use. HEART: Regular rate and rhythm, S1, S2 without murmur, rub or gallop. ABDOMEN: Soft, nontender, nondistended, normoactive bowel sounds, no guarding, no rebound, no hepatosplenomegaly, no masses. EXTREMITIES: 2+ pulses, warm, well-perfused, no edema. NEUROLOGICAL: Cranial nerves II through XII grossly intact. Normal speech, gait not observed. PSYCH: Normal mood, normal affect. SKIN: Warm, dry, normal turgor, no rashes or lesions noted Laboratory Results - last 24 hr 01/27/17 01/28/17 01/28/17 23:15 05:15 05:15 WBC 14.1 H RBC 3.91 Hgb 11.8 Hct 36.5 MCV 93.4 MCH 30.2 MCHC 32.3 RDW 16.2 H Plt Count 196 MPV 10.0 Sodium 139 139 Potassium 4.1 4.8 Chloride 99 98 Carbon Dioxide 32 36 H Anion Gap 8 5 L BUN 12 12 Creatinine 0.9 0.8 Random Glucose 261 H 251 H Calcium 8.6 8.1 L Active Medications Generic Name Dose Route Start Last Admin Trade Name Freq PRN Reason Stop Dose Admin Acetaminophen 1,000 mg 01/27/17 22:02 Ofirmev Injection - IVPB 01/28/17 21:52 Q6H PRN If narcotics are ineffective Albuterol Sulfate 1 amp 01/27/17 23:10 01/27/17 22:40 Ventolin 0.083% Nebulizer Soln - NEB 1 amp Q1H PRN Administration SHORT OF BREATH/WHEEZING Heparin Sodium (Porcine) 5,000 unit 01/28/17 02:00 01/28/17 01:57 Heparin - SQ Not Given Q8H-IV DESTINY Hydromorphone HCl 0.25 mg 01/27/17 23:07 Dilaudid Injection - IVPUSH 01/30/17 23:08 [id number] PRN PAIN Lactated Ringer's 1,000 mls @ 125 mls/hr 01/27/17 23:15 01/28/17 00:15 Lactated Ringers Solution IV 0 mls ASDIR DESTINY Administration Famotidine/Sodium Chloride 50 mls @ 100 mls/hr 01/28/17 10:00 Pepcid 20 Mg Premixed Ivpb - IVPB BID DESTINY Metoprolol Tartrate 5 mg 01/27/17 23:35 Lopressor Injection - IVPUSH Q4H PRN HYPERTENSION Morphine Sulfate 4 mg 01/27/17 23:35 01/28/17 04:37 Morphine Injection - IVPUSH 4 mg Q6H PRN Administration PAIN ASSESSMENT/PLAN: Problem List - Problems (1) Hernia Code(s): K46.9 - UNSPECIFIED ABDOMINAL HERNIA WITHOUT OBSTRUCTION OR GANGRENE (2) Hypertension Code(s): I10 - ESSENTIAL (PRIMARY) HYPERTENSION (3) Incarcerated hernia Code(s): K46.0 - UNSP ABDOMINAL HERNIA WITH OBSTRUCTION, WITHOUT GANGRENE (4) Lactic acid acidosis Code(s): E87.2 - ACIDOSIS Visit type - Emergency Visit Emergency Visit: No - New Patient This patient is new to me today: Yes Date on this admission: 01/28/17 - Critical Care Critical Care patient: Yes Total Critical Care Time (in minutes): 30 Critical Care Statement: The care of this patient involved high complexity decision making to prevent further life threatening deterioration of the patient 's condition and/or to evaluate & treat vital organ system(s) failure or risk of failure.
--- NOTE | 2017-01-28 09:05 | PN ---
Physical Exam: SUBJECTIVE: Patient seen and examined in ICU. POD#1. Refusing CPAP overnight. Pt is willing to try CPAP later today. Pain 8/10 burning sensation at surgical site. OBJECTIVE: Vital Signs Period Temp Pulse Resp BP Sys/Desai Pulse Ox Last 24 Hr 98 F-993 F 93-133 12-25 96-154/49-88 90-97 GENERAL: The patient is awake, alert, and fully oriented, in no acute distress. EYES: PERRL, extraocular movements intact, sclera anicteric, conjunctiva clear. No ptosis. ENT: Ears normal, nares patent, oropharynx clear without exudates, moist mucous membranes. LUNGS: Breath sounds equal, clear to auscultation bilaterally, no wheezes, no crackles, no accessory muscle use. Speaking full sentences. Maintaining Spo2 on 2L nasal cannula. HEART: Regular rate and rhythm, S1, S2 without murmur, rub or gallop. ABDOMEN: Obese abdomen soft, nontender, nondistended, normoactive bowel sounds, no guarding, no rebound, no hepatosplenomegaly, no masses. Midline surgical incision with JPx2 with serosanguinous drainage R>L. EXTREMITIES: 2+ pulses, warm, well-perfused, no edema. No cords or tenderness to calves. NEUROLOGICAL: Cranial nerves II through XII grossly intact. Normal speech, gait not observed. PSYCH: Normal mood, normal affect. SKIN: Warm, dry, normal turgor, no rashes or lesions noted Laboratory Results - last 24 hr 01/27/17 01/28/17 01/28/17 23:15 05:15 05:15 WBC 14.1 H RBC 3.91 Hgb 11.8 Hct 36.5 MCV 93.4 MCH 30.2 MCHC 32.3 RDW 16.2 H Plt Count 196 MPV 10.0 Sodium 139 139 Potassium 4.1 4.8 Chloride 99 98 Carbon Dioxide 32 36 H Anion Gap 8 5 L BUN 12 12 Creatinine 0.9 0.8 Random Glucose 261 H 251 H Calcium 8.6 8.1 L Active Medications Generic Name Dose Route Start Last Admin Trade Name Freq PRN Reason Stop Dose Admin Acetaminophen 1,000 mg 01/27/17 22:02 Ofirmev Injection - IVPB 01/28/17 21:52 Q6H PRN If narcotics are ineffective Albuterol Sulfate 1 amp 01/27/17 23:10 01/27/17 22:40 Ventolin 0.083% Nebulizer Soln - NEB 1 amp Q1H PRN Administration SHORT OF BREATH/WHEEZING Heparin Sodium (Porcine) 5,000 unit 01/28/17 02:00 01/28/17 01:57 Heparin - SQ Not Given Q8H-IV DESTINY Hydromorphone HCl 0.25 mg 01/27/17 23:07 Dilaudid Injection - IVPUSH 01/30/17 23:08 [id number] PRN PAIN Lactated Ringer's 1,000 mls @ 125 mls/hr 01/27/17 23:15 01/28/17 00:15 Lactated Ringers Solution IV 0 mls ASDIR DESTINY Administration Famotidine/Sodium Chloride 50 mls @ 100 mls/hr 01/28/17 10:00 Pepcid 20 Mg Premixed Ivpb - IVPB BID DESTINY Metoprolol Tartrate 5 mg 01/27/17 23:35 Lopressor Injection - IVPUSH Q4H PRN HYPERTENSION Morphine Sulfate 4 mg 01/27/17 23:35 01/28/17 04:37 Morphine Injection - IVPUSH 4 mg Q6H PRN Administration PAIN ASSESSMENT/PLAN: A: 66 yo woman who is POD#1 s/p open ventral hernia repair. P: 1. Ventral hernia repair - care per surgery - IS encouraged - Coughing and deep breathing encouraged - Pt educated on abdominal splinting during cough and deep breathing 2. Acute respiratory failure likely 2/2 Obesity hypoventilation syndrome - NIPPV as tolerated - discussion had with patient regarding need for NIPPV- she is willing to try later today - maintaining Spo2 on 2LNC - use narcotics sparingly 3. Pain - post-op - Tylenol IV - Dilaudid 0.25mg IVP prn 4. Lactic acidosis - lactate resolved 5. HTN - well controlled - continue Metoprolol 6. F/E/N - replete PRN - NPO- advance diet per surgery - LR@125 7. PPX - pepcid - sqh - OOB as tolerated Dispo- requires inpatient treatment for her acute medical condition Visit type - Emergency Visit Emergency Visit: Yes ED Registration Date: 01/27/17 Care time: The patient presented to the Emergency Department on the above date and was hospitalized for further evaluation of their emergent condition. - New Patient This patient is new to me today: Yes Date on this admission: 01/31/17 - Critical Care Critical Care patient: Yes Total Critical Care Time (in minutes): 35 Critical Care Statement: The care of this patient involved high complexity decision making to prevent further life threatening deterioration of the patient 's condition and/or to evaluate & treat vital organ system(s) failure or risk of failure.
--- NOTE | 2017-01-28 09:10 | PN ---
Progress Note (short form) - Note Progress Note: Post op day#1.S/P Repair of incarcerated incisional hernia under GA uneventful.P98,BP105/71 and Spo2 98% on O2 4L.Patient stable.No any anesthesia related problem.Patient DC from the anesthesia care.
[2017-01-28] MEDS ORDERED: FAMOTIDINE 20 MG/50 ML IVPB 50 ML IVPB SCH (10:00)
[2017-01-28] MEDS ORDERED: ACETAMINOPHEN 1000 MG/100 ML VIAL (NON FORMULARY) IVPB PRN (12:35)
[2017-01-28] MEDS ORDERED: morphine CARPU-JECT 4 MG/1 ML DISP.SYRIN IVPUSH PRN (12:35)
[2017-01-28] MEDS ORDERED: HYDROmorphone HCL CARPU-JECT 1 MG/1 ML DISP.SYRIN IVPUSH PRN (12:35)
[2017-01-28] MEDS ORDERED: METOPROLOL TARTRATE 5 MG/5 ML VIAL IVPUSH PRN (12:35)
[2017-01-28] MEDS ORDERED: ALBUTEROL SO4 0.083% IH SOL 2.5 MG/3 ML VIAL.NEB. NEB PRN (12:35)
--- NOTE | 2017-01-28 13:00 | PN ---
Physical Exam: SUBJECTIVE: Patient seen and examined this morning while laying comfortably in bed. Pt denies any overnight events including fever, chills, nausea, chest pain or SOB. Admits to continued abdominal pain near incision site. Pt expresses desire to be discharged soon. Pt has no other acute complaints at this time. OBJECTIVE: Vital Signs Period Temp Pulse Resp BP Sys/Desai Pulse Ox Last 24 Hr 98 F-993 F 92-133 12-25 96-154/49-88 90-97 GENERAL: The patient is awake, alert, not altered, in no acute distress. Obese body habitus HEAD: Normal with no signs of trauma. EYES: PERRL, extraocular movements intact, sclera anicteric, conjunctiva clear. No ptosis. ENT: moist mucous membranes, nasal cannula in place NECK: Trachea midline LUNGS: Breath sounds equal, clear to auscultation bilaterally, no wheezes, no crackles, no accessory muscle use. HEART: Regular rate and rhythm, S1, S2 without murmur, rub or gallop. ABDOMEN: Obese abdomen, soft, tender to palpation R side>L, midline incision with bandage in place without surrounding erythema, edema or drainage. [address] EXTREMITIES: 2+ radial pulses, warm, well-perfused; 1+ LE edema NEUROLOGICAL: Normal speech, awning assembler strength 5/5 in b/l UE, PSYCH: Normal mood, normal affect. SKIN: Warm, dry, normal turgor, no rashes or lesions noted Laboratory Results - last 24 hr 01/27/17 01/28/17 01/28/17 23:15 05:15 05:15 WBC 14.1 H RBC 3.91 Hgb 11.8 Hct 36.5 MCV 93.4 MCH 30.2 MCHC 32.3 RDW 16.2 H Plt Count 196 MPV 10.0 Sodium 139 139 Potassium 4.1 4.8 Chloride 99 98 Carbon Dioxide 32 36 H Anion Gap 8 5 L BUN 12 12 Creatinine 0.9 0.8 Random Glucose 261 H 251 H Lactic Acid Calcium 8.6 8.1 L 01/28/17 10:30 WBC RBC Hgb Hct MCV MCH MCHC RDW Plt Count MPV Sodium Potassium Chloride Carbon Dioxide Anion Gap BUN Creatinine Random Glucose Lactic Acid 1.4 Calcium Active Medications Generic Name Dose Route Start Last Admin Trade Name Freq PRN Reason Stop Dose Admin Acetaminophen 1,000 mg 01/28/17 12:35 Ofirmev Injection - IVPB 01/28/17 21:52 Q6H PRN If narcotics are ineffective Albuterol Sulfate 1 amp 01/28/17 12:35 Ventolin 0.083% Nebulizer Soln - NEB Q1H PRN SHORT OF BREATH/WHEEZING Heparin Sodium (Porcine) 5,000 unit 01/28/17 14:00 Heparin - SQ TID DESTINY Hydromorphone HCl 0.25 mg 01/28/17 12:35 Dilaudid Injection - IVPUSH 01/30/17 23:08 [id number] PRN PAIN Lactated Ringer's 1,000 mls @ 125 mls/hr 01/28/17 12:35 Lactated Ringers Solution IV ASDIR DESTINY Famotidine/Sodium Chloride 50 mls @ 100 mls/hr 01/28/17 22:00 Pepcid 20 Mg Premixed Ivpb - IVPB BID DESTINY Metoprolol Tartrate 5 mg 01/28/17 12:35 Lopressor Injection - IVPUSH Q4H PRN HYPERTENSION Morphine Sulfate 4 mg 01/28/17 12:35 Morphine Injection - IVPUSH Q6H PRN PAIN ASSESSMENT/PLAN: Gabriela Ness is a 66 y/o F pmhx HTN, DM, hernia repair with mesh and omental mass removal in 2011 admitted 01/27/17 with hypoxia and incarcerated hernia s/p repair with mesh. Neuro: -Alert, not altered -Continue to monitor neuro status Resp: -Per notes on admission O2 sats 92% on RA -CT chest revealed mild b/l lower lung parenchymal scarring and dilated pulmonary trunk -Upon transfer to ICU post op, O2 sat between 86-91% and increased work of breathing per RN; pt refused BIPAP and placed on Venti mask FiO2 40% -Currently on 4L NC with O2 sat 91% -Hypoxia most likely 2/2 underlying obesity hypoventilation syndrome +/- SHIRA -Continue to monitor O2 sats and work of breathing -Continue Ventolin Q1H PRN Cardio: -Hx HTN, per notes not taking oral meds for two days prior to admission (on Losartan at home) -BP 178/94 on admission -Holding oral BP meds post op -BP this AM 119/78 -Continue Lopressor 5mg IVP Q4H PRN GI: -CT abdomen/pelvis revealed large midline ventral hernia involving transverse colon -POD #1 s/p incarcerated hernia repair with removal and replacement of mesh and lysis of adhesions; per operative note no ischemic bowel identified -WBC 13.3 on admission --> 14.1 today -Given Ceftriaxone 1gm and Flagyl 500mg on admission -Lactic acid trending down from 3.7 --> 2.2 -ASHLEY drains in place -Continue pain control with Morphine, Dilaudid and Acetaminophen PRN Endocrine: -Hx DM on Metformin -BG on admission 252 Renal: -Ramirez catheter in place FEN: -LR @125ml/hr -Continue to monitor electrolytes -Continue NPO status post op per general surgery Prophylaxis: -Heparin 5000 SQ TID -Pepcid Dispo: -Stable for transfer to [facility] Problem List - Problems (1) Hernia Code(s): K46.9 - UNSPECIFIED ABDOMINAL HERNIA WITHOUT OBSTRUCTION OR GANGRENE (2) Hypertension Code(s): I10 - ESSENTIAL (PRIMARY) HYPERTENSION (3) Incarcerated hernia Code(s): K46.0 - UNSP ABDOMINAL HERNIA WITH OBSTRUCTION, WITHOUT GANGRENE (4) Lactic acid acidosis Code(s): E87.2 - ACIDOSIS Visit type - Emergency Visit Emergency Visit: No - New Patient This patient is new to me today: Yes Date on this admission: 01/28/17 - Critical Care Critical Care patient: Yes Total Critical Care Time (in minutes): 25
[2017-01-28] MEDS: LACTATED RINGERS SOLUTION 1,000 ML IV SCH (15:16)
--- NOTE | 2017-01-28 16:42 | PN ---
Progress Note (short form) - Note Progress Note: Attending Surgeon POD #1 s/p repair incarcerated ventral/incisional hernia. She states she feels better than pre-op; she was being monitored in the ICU post op VSS AF abdomen-obese; incision c/d/i/; tympanitic; incisional tenderness; ASHLEY output noted. extremities -warm; no calf tenderness; o/w negative. labs/I and O noted IMP:doing well PLAN: Continue NPO/IVF; pulmonary toilet; OBB ;DVT prophylaxis; floor transfer. Eugenio Calvin MD FACS
[2017-01-28] MEDS: FAMOTIDINE 20 MG/50 ML IVPB 50 ML IVPB SCH (21:15)
[2017-01-29] MEDS: HEPARIN NA (PORCINE) 5,000 UNITS/ML 1ML VIAL SQ SCH ×3 (05:45→22:07)
[2017-01-29] MEDS: LACTATED RINGERS SOLUTION 1,000 ML IV SCH (06:11)
--- NOTE | 2017-01-29 08:11 | PN ---
Progress Note (short form) - Note Progress Note: Attending Surgeon POD #2 States she feels better; ambulated yesterday after xfer from ICU; voiding spontaneously VSS t99.7 abdomen-soft; obese; non tympanitic; dressing c/d/i; ASHLEY drains in place w/ serous to serosanguinous output extrems-warm and w/o calf tenderness AM labs pending IMP: s/p repair of incarcerated ventral/incisional hernia w/ mesh PLAN: OOB walking; pulmonary toilet; continue drains; trial of clear liquid diet. Eugenio Calvin MD FACS
[2017-01-29 08:19] LABS: BASOPHIL 0.4 % (0-2.0); EOSINOPHIL 0.8 % (0-4.5); MCH 29.6 pg (25.7-33.7); MCHC 31.8 g/dl (32.0-36.0); MEAN CELL VOLUME 93.2 fl (80-96); MEAN PLT VOLUME 9.3 fl (7.5-11.1); NEUTROPHILS 80.9 % (42.8-82.8); PLATELET COUNT 178 K/MM3 (134-434); RDW 15.7 % (11.6-15.6); WHITE BLOOD COUNT 12.1 K/mm3 (4.0-10.0)
[2017-01-29 08:33] LABS: ANION GAP 7 (8-16); CALCIUM 8.6 mg/dL (8.5-10.1); CO2 34 mmol/L (21-32); CREATININE 0.7 mg/dL (0.55-1.02); GLUCOSE,RANDOM 195 mg/dL (74-106)
[2017-01-29] MEDS: FAMOTIDINE 20 MG/50 ML IVPB 50 ML IVPB SCH (09:31)
--- NOTE | 2017-01-29 12:16 | PN ---
Physical Exam: SUBJECTIVE: Patient seen and examined. She is oob to chair she is tolerating clears well. Ambulating the room OBJECTIVE: Vital Signs Period Temp Pulse Resp BP Sys/Desai Pulse Ox Last 24 Hr 98.5 F-99.7 F 90-102 16-21 115-153/62-79 97 PE: Gen: obese Neuro: alert, awake, cn 2-12intact Pulm: CTAB + NC CV: s1 s2 rrr no mrg Abd: lower abd incision CDI x2 ASHLEY drain with sanguinous output Ext: warm, no le edema Laboratory Results - last 24 hr 01/29/17 01/29/17 01/29/17 07:20 07:20 07:20 WBC 12.1 H RBC 3.82 Hgb 11.3 Hct 35.6 MCV 93.2 MCH 29.6 MCHC 31.8 L RDW 15.7 H Plt Count 178 MPV 9.3 Neutrophils % 80.9 Lymphocytes % 9.2 Monocytes % 8.7 Eosinophils % 0.8 Basophils % 0.4 Sodium 140 Potassium 4.3 Chloride 99 Carbon Dioxide 34 H Anion Gap 7 L BUN 10 Creatinine 0.7 Random Glucose 195 H D Lactic Acid 1.5 Calcium 8.6 Active Medications Generic Name Dose Route Start Last Admin Trade Name Freq PRN Reason Stop Dose Admin Albuterol Sulfate 1 amp 01/28/17 12:35 01/28/17 21:20 Ventolin 0.083% Nebulizer Soln - NEB 1 amp Q1H PRN Administration SHORT OF BREATH/WHEEZING Heparin Sodium (Porcine) 5,000 unit 01/28/17 14:00 01/29/17 05:45 Heparin - SQ 5,000 unit TID DESTINY Administration Hydromorphone HCl 0.25 mg 01/28/17 12:35 Dilaudid Injection - IVPUSH 01/30/17 23:08 [id number] PRN PAIN Lactated Ringer's 1,000 mls @ 125 mls/hr 01/28/17 12:35 01/29/17 06:11 Lactated Ringers Solution IV 125 mls/hr ASDIR DESTINY Administration Famotidine/Sodium Chloride 50 mls @ 100 mls/hr 01/28/17 22:00 01/29/17 09:31 Pepcid 20 Mg Premixed Ivpb - IVPB 100 mls/hr BID DESTINY Administration Metoprolol Tartrate 5 mg 01/28/17 12:35 Lopressor Injection - IVPUSH Q4H PRN HYPERTENSION Morphine Sulfate 4 mg 01/28/17 12:35 Morphine Injection - IVPUSH Q6H PRN PAIN Assessment: 66 year old female with pmhx of HTN, DM II, ventral hernia/colonic obstruction with 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 Plan: 1. Incarcerated recurrent incisional/ventral hernia - Open hernia repair 01/27 - Continue IS, ambulation, oob to chair - Clear liquids - Stop LR - D/w surgery 2. Acute respiratory failure likely 2/2 Obesity hypoventilation syndrome - Stable on NC - Biapap as tolerated, encourage HS use 3. HTN - Stable - Resume home losartan 50mg daily 4. Lactic acidosis - Resolved Visit type - Emergency Visit Emergency Visit: Yes ED Registration Date: 01/27/17 Care time: The patient presented to the Emergency Department on the above date and was hospitalized for further evaluation of their emergent condition. - New Patient This patient is new to me today: Yes Date on this admission: 01/29/17 - Critical Care Critical Care patient: No
--- NOTE | 2017-01-29 14:39 | PATH ---
Surgical Pathology Report Patient Name: SHARMILA GRAMAJO [facility]. Rec. #: [id number] /Age/Gender: 1950 (Age: 66) / F Account: [id number] Location: [address] [place] [address]/[facility] Taken: 01/27/2017 Received: 01/28/2017 Reported: 01/29/2017 Physicians: Eugenio Calvin MD Specimen(s) Received HERNIA SAC AND FAT Clinical History Incarcerated hernia Final Diagnosis HERNIA SAC INFARCT, INCARCERATED INCISIONAL HERNIA REPAIR: BENIGN FIBROMEMBRANOUS AND FIBROFATTY TISSUE. Electronically Signed Jethro Guerra M.D. Gross Description Received in formalin labeled "hernia sac and fat" is a 13.4 x 4.5 x 2.0 cm portion of shay-menendez fibromembranous tissue with attached fat. No discrete masses are identified. A field marketing representative section is submitted in one cassette. 01/28/201701/28/2017
[2017-01-29] MEDS: LOSARTAN POTASSIUM 50 MG TABLET (FP) PO SCH (14:43)
[2017-01-29] MEDS: ACETAMINOPHEN 325 MG TABLET (FP) PO PRN (22:42)
[2017-01-30] MEDS: HEPARIN NA (PORCINE) 5,000 UNITS/ML 1ML VIAL SQ SCH ×3 (06:21→21:30)
[2017-01-30 08:38] LABS: BASOPHIL 0.5 % (0-2.0); MCH 30.5 pg (25.7-33.7); MCHC 32.7 g/dl (32.0-36.0); MEAN CELL VOLUME 93.3 fl (80-96); MEAN PLT VOLUME 9.7 fl (7.5-11.1); NEUTROPHILS 75.8 % (42.8-82.8); PLATELET COUNT 197 K/MM3 (134-434); RDW 15.8 % (11.6-15.6); WHITE BLOOD COUNT 8.8 K/mm3 (4.0-10.0)
[2017-01-30 08:54] LABS: ANION GAP 3 (8-16); CALCIUM 9.1 mg/dL (8.5-10.1); CO2 38 mmol/L (21-32); CREATININE 0.6 mg/dL (0.55-1.02); GLUCOSE,RANDOM 190 mg/dL (74-106)
[2017-01-30] MEDS: LOSARTAN POTASSIUM 50 MG TABLET (FP) PO SCH (09:33)
--- NOTE | 2017-01-30 11:27 | PN ---
Progress Note (short form) - Note Progress Note: Attending Surgeon POD #3 no c/o; tolerating clear liquids and having bowel movements; ambulating w/o difficulty VSS temp. 99.1 abdo-soft; non distended; incision c/d/i; ASHLEY drainage decreased still more sanguinous on the right than left WBC normal IMP: doing well PLAN: advance diet; OOB; continue drains; d/w WILD Schroeder. Eugenio Calvin MD FACS
[2017-01-30] MEDS ORDERED: oxyCODONE HCL 5 MG TABLET PO PRN (12:41)
--- NOTE | 2017-01-30 12:48 | PN ---
Physical Exam: SUBJECTIVE: Patient seen and examined. She is feeling well and is tolerating clears. Events: - 94% on 3L OBJECTIVE: Vital Signs Period Temp Pulse Resp BP Sys/Desai Pulse Ox Last 24 Hr 98.2 F-99.1 F 91-107 19-22 111-139/64-81 94 PE: Gen: obese Neuro: alert, awake, cn 2-12intact Pulm: CTAB + NC CV: s1 s2 rrr no mrg Abd: lower abd incision CDI x2 ASHLEY drain with sanguinous output drain #2, drain # 1 serosanguinous Ext: warm, no le edema Laboratory Results - last 24 hr 01/30/17 01/30/17 07:30 07:30 WBC 8.8 RBC 3.60 Hgb 11.0 Hct 33.6 MCV 93.3 MCH 30.5 MCHC 32.7 RDW 15.8 H Plt Count 197 MPV 9.7 Neutrophils % 75.8 Lymphocytes % 12.4 D Monocytes % 9.3 Eosinophils % 2.0 D Basophils % 0.5 Sodium 137 Potassium 4.5 Chloride 96 L Carbon Dioxide 38 H Anion Gap 3 L BUN 9 Creatinine 0.6 Random Glucose 190 H Calcium 9.1 Phosphorus 2.0 L Magnesium 2.0 Active Medications Generic Name Dose Route Start Last Admin Trade Name Freq PRN Reason Stop Dose Admin Acetaminophen 650 mg 01/29/17 22:25 01/29/17 22:42 Tylenol - PO 650 mg Q6H PRN Administration FEVER OR PAIN Albuterol Sulfate 1 amp 01/28/17 12:35 01/28/17 21:20 Ventolin 0.083% Nebulizer Soln - NEB 1 amp Q1H PRN Administration SHORT OF BREATH/WHEEZING Heparin Sodium (Porcine) 5,000 unit 01/28/17 14:00 01/30/17 06:21 Heparin - SQ 5,000 unit TID DESTINY Administration Losartan Potassium 50 mg 01/29/17 14:45 01/30/17 09:33 Cozaar - PO 50 mg DAILY DESTINY Administration Morphine Sulfate 4 mg 01/28/17 12:35 Morphine Injection - IVPUSH Q6H PRN PAIN Oxycodone HCl 5 mg 01/30/17 12:41 Roxicodone - PO Q6H PRN PAIN Potassium Phos/Sodium Phos 1 packet 01/30/17 12:45 Phos-Nak Packet - PO 02/01/17 12:44 BID DESTINY Assessment: 66 year old female with pmhx of HTN, DM II, ventral hernia/colonic obstruction with 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 Plan: 1. Incarcerated recurrent incisional/ventral hernia - Open hernia repair 01/27 - Continue IS, ambulation, oob to chair - Advance to diabetic diet - D/w surgery 2. Metabolic Alkalosis - Likely d/t SHIRA - Encourage Bipap HS - Will monitor trend 3. Acute respiratory failure likely 2/2 Obesity hypoventilation syndrome - Resolved, stable on NC - See above 4. HTN - Stable - Losartan 50mg daily 5. DM II - Hgb a1c 8.6 - Hold po meds - Start ISS, BGM ACHS - Levemir 10units 6. Lactic acidosis - Resolved Visit type - Emergency Visit Emergency Visit: Yes ED Registration Date: 01/27/17 Care time: The patient presented to the Emergency Department on the above date and was hospitalized for further evaluation of their emergent condition. - New Patient This patient is new to me today: No - Critical Care Critical Care patient: No
[2017-01-30] MEDS: NAPH,MB-DB/K PH,MBDB POWDER PACKET PO SCH ×2 (14:53→21:30)
[2017-01-30] MEDS ORDERED: INSULIN SLIDING SCALE (NOVOLOG) 1 VIAL SQ SCH (16:30)
[2017-01-30] MEDS: metFORMIN HCL 500 MG TABLET (FP) PO SCH (18:02)
[2017-01-30] MEDS ORDERED: INSULIN DETEMIR 100 UNITS/ML MDV SQ SCH (22:00)
[2017-01-31] MEDS: HEPARIN NA (PORCINE) 5,000 UNITS/ML 1ML VIAL SQ SCH ×3 (06:18→21:40)
[2017-01-31] MEDS: metFORMIN HCL 500 MG TABLET (FP) PO SCH ×2 (06:34→18:33)
[2017-01-31 08:31] LABS: ANION GAP 3 (8-16); CO2 40 mmol/L (21-32); CREATININE 0.7 mg/dL (0.55-1.02); GLUCOSE,RANDOM 176 mg/dL (74-106); PHOSPHOROUS 2.5 mg/dL (2.5-4.9)
--- NOTE | 2017-01-31 09:44 | OP ---
DATE OF OPERATION: 01/27/2017 PREOPERATIVE DIAGNOSIS: Incarcerated incisional hernia. POSTOPERATIVE DIAGNOSIS: Incarcerated incisional hernia. PROCEDURE: Repair of incarcerated incisional hernia with mesh. SURGEON: Eugenio Calvin MD [employer] SERVICE TECHNICIAN: Yimi Lerma PA-C ANESTHESIA: General. OPERATIVE FINDINGS: There was incarcerated but viable transverse colon in the hernia defect. In addition, there was evidence of old mesh and previous repair and previous suture material. The defect was approximately 10 x 10 cm in greatest dimension. There were multiple adhesions from previous surgery, and the rest of the findings were unremarkable. DESCRIPTION OF PROCEDURE: The patient was placed on the operating table in the supine position, and after the induction of general anesthesia and placement of sequential compression devices on the patient lower extremities and a Ramirez catheter, the abdomen was prepped with ChloraPrep and draped in sterile fashion. Incision was made with a scalpel through the previous midline incision above the umbilicus and taken down through skin and subcutaneous tissue. The hernia sac was identified and entered, and the previously noted findings were observed. The skin and fascia were opened more proximally and distally, and then, redundant hernia sac was excised and sent for pathological examination along with mesh. The transverse colon was removed from its sac which was located in the subcutaneous tissue on the right side of the abdomen. Next, the defect was clearly defined removing redundant sac using electrocautery and sending it for pathological examination and opening up the defect in the right lateral abdominal wall to make one large central defect. After extensive adhesiolysis using blunt and sharp dissection, the colon was placed back in the abdominal cavity, and repair was carried out using a piece of Ventrio ST Mesh, which was custom fashioned into the defect and secured in place with continuous No. 1 Prolene. Hemostasis was checked for and noted to be good, and then, the wound and subcutaneous tissue were copiously irrigated with sterile saline. Two 10-mm Ehsan-Baker drains were placed in the subcutaneous tissue on either side of the incision through separate stab wounds in the lower abdomen. The drains were sutured to the skin with 2-0 silk suture. Again, hemostasis was verified, and then, redundant sac and subcutaneous tissue were closed over the defect using interrupted 0 Vicryl. The deep dermis was reapproximated with interrupted 2-0 Vicryl, and the skin edges with surgical meche. Dry sterile dressings were placed. The drains were connected to bulb self-suction, and the patient aroused from general anesthesia and transferred to the post-anesthesia care unit in stable condition, awake and alert. ESTIMATED BLOOD LOSS: 150 mL. REPLACEMENTS: Crystalloid. DRAINS: Two 10-mm Ehsan-Baker. SPECIMENS: Old mesh, sac, and sutures to Pathology. I, Eugenio Calvin, was physically present in the operating room from the time the patient was placed on the operating table until she was transferred to the post-anesthesia care unit in my accompaniment. MD YAMILKA Olson/[id number]
--- NOTE | 2017-01-31 10:03 | PN ---
Progress Note (short form) - Note Progress Note: Attending Surgeon POD #4 No c/o; tolerating diet; having bowel movements and passing flatus VSS AF abdomen-soft; incision c/d/i; right drain w/ less output; still slightly sanguinous; left minimal and serous labs noted IMP: doing well PLAN: D/c planning to outpatient f/u in my offoce; will go home w/drains and VNS for drain and wound care. Eugenio Calvin MD FACS
[2017-01-31] MEDS: LOSARTAN POTASSIUM 50 MG TABLET (FP) PO SCH (10:08)
[2017-01-31] MEDS: NAPH,MB-DB/K PH,MBDB POWDER PACKET PO SCH ×2 (10:08→21:40)
--- NOTE | 2017-01-31 14:04 | PN ---
Physical Exam: SUBJECTIVE: Patient seen and examined. She feels well, no acute complaints. OBJECTIVE: Vital Signs Period Temp Pulse Resp BP Sys/Desai Pulse Ox Last 24 Hr 98.1 F-98.6 F 66-92 16-66 100-137/54-70 90-95 PE: Gen: obese Neuro: alert, awake, cn 2-12intact Pulm: CTAB CV: s1 s2 rrr no mrg Abd: lower abd incision CDI x2 ASHLEY drain with sanguinous output drain #2, drain # 1 serosanguinous Ext: warm, no le edema Laboratory Results - last 24 hr 01/30/17 01/31/17 01/31/17 16:24 05:44 06:40 Sodium 139 Potassium 4.5 Chloride 96 L Carbon Dioxide 40 H Anion Gap 3 L BUN 12 D Creatinine 0.7 POC Glucometer 182 206 Random Glucose 176 H Calcium 9.0 Phosphorus 2.5 D Active Medications Generic Name Dose Route Start Last Admin Trade Name Freq PRN Reason Stop Dose Admin Acetaminophen 650 mg 01/29/17 22:25 01/29/17 22:42 Tylenol - PO 650 mg Q6H PRN Administration FEVER OR PAIN Albuterol Sulfate 1 amp 01/28/17 12:35 01/28/17 21:20 Ventolin 0.083% Nebulizer Soln - NEB 1 amp Q1H PRN Administration SHORT OF BREATH/WHEEZING Heparin Sodium (Porcine) 5,000 unit 01/28/17 14:00 01/31/17 13:22 Heparin - SQ 5,000 unit TID DESTINY Administration Losartan Potassium 50 mg 01/29/17 14:45 01/31/17 10:08 Cozaar - PO 50 mg DAILY DESTINY Administration Metformin HCl 1,000 mg 01/30/17 17:00 01/31/17 06:34 Glucophage - PO 1,000 mg BIDAC DESTINY Administration Oxycodone HCl 5 mg 01/30/17 12:41 Roxicodone - PO Q6H PRN PAIN Potassium Phos/Sodium Phos 1 packet 01/30/17 12:45 01/31/17 10:08 Phos-Nak Packet - PO 02/01/17 12:44 1 packet BID DESTINY Administration Assessment: 66 year old female with pmhx of HTN, DM II, ventral hernia/colonic obstruction with 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 Plan: 1. Incarcerated recurrent incisional/ventral hernia - Open hernia repair 01/27 - Continue IS, ambulation, oob to chair - Maintain drains, can home home with VSN with surgery office follow up - Obtain pre and post home o2, dose not use oxygen at home 2. Metabolic Alkalosis - Likely d/t SHIRA - Encourage Bipap HS - Likely uptrending to normal levels following acute rept failure 3. Acute respiratory failure likely 2/2 Obesity hypoventilation syndrome - Resolved, stable on NC - See above 4. HTN - Stable - Losartan 50mg daily 5. DM II - Hgb a1c 8.6 - AM sugars stable - Restart metformin 1000mg bid 6. Lactic acidosis - Resolved Dispo: - Home with VNS tomorrow Visit type - Emergency Visit Emergency Visit: Yes ED Registration Date: 01/27/17 Care time: The patient presented to the Emergency Department on the above date and was hospitalized for further evaluation of their emergent condition. - New Patient This patient is new to me today: No - Critical Care Critical Care patient: No
[2017-01-31] MEDS: ACETAMINOPHEN 325 MG TABLET (FP) PO PRN (21:44)
[2017-02-01] MEDS: HEPARIN NA (PORCINE) 5,000 UNITS/ML 1ML VIAL SQ SCH ×3 (06:35→21:29)
[2017-02-01] MEDS: metFORMIN HCL 500 MG TABLET (FP) PO SCH ×2 (06:36→16:46)
[2017-02-01] MEDS: LOSARTAN POTASSIUM 50 MG TABLET (FP) PO SCH (09:21)
[2017-02-01] MEDS: NAPH,MB-DB/K PH,MBDB POWDER PACKET PO SCH (09:22)
--- NOTE | 2017-02-01 10:57 | PN ---
Progress Note (short form) - Note Progress Note: Attending Surgeon POD #5 No c/o; ambulating w/ a walker; tolerating diet and having bowel movements and passing gas VSS AF abdomen-soft; incision c/d/i; left ASHLEY minimal serous output; right ASHLEY drainage decreased and less bloody IMP: doing well PLAN: Left ASHLEY removed; right remains; OOB and ambulating; aniticipate d/c . Eugenio Calvin MD FACS
--- NOTE | 2017-02-01 13:47 | PN ---
Physical Exam: SUBJECTIVE: Patient seen and examined. She feels well. Her o2 levels drop with ambulation. She is eager to change her diet to help with her DM. Family at bedside Events: - L ASHLEY removed - Positive BM, gas OBJECTIVE: Vital Signs Period Temp Pulse Resp BP Sys/Desai Pulse Ox Last 24 Hr 97.3 F-99.3 F 90-127 18-20 130-150/65-73 90-96 PE: Neuro: alert, awake, cn 2-12intact Pulm: CTAB CV: s1 s2 rrr no mrg Abd: lower abd incision CDI x2 ASHLEY drain with sanguinous output drain #2 Ext: warm, no le edema Laboratory Results - last 24 hr 02/01/17 06:01 POC Glucometer 185 Active Medications Generic Name Dose Route Start Last Admin Trade Name Freq PRN Reason Stop Dose Admin Acetaminophen 650 mg 01/29/17 22:25 01/31/17 21:44 Tylenol - PO 650 mg Q6H PRN Administration FEVER OR PAIN Albuterol Sulfate 1 amp 01/28/17 12:35 01/28/17 21:20 Ventolin 0.083% Nebulizer Soln - NEB 1 amp Q1H PRN Administration SHORT OF BREATH/WHEEZING Heparin Sodium (Porcine) 5,000 unit 01/28/17 14:00 02/01/17 13:27 Heparin - SQ 5,000 unit TID DESTINY Administration Losartan Potassium 50 mg 01/29/17 14:45 02/01/17 09:21 Cozaar - PO 50 mg DAILY DESTINY Administration Metformin HCl 1,000 mg 01/30/17 17:00 02/01/17 06:36 Glucophage - PO 1,000 mg BIDAC DESTINY Administration Oxycodone HCl 5 mg 01/30/17 12:41 Roxicodone - PO Q6H PRN PAIN Assessment: 66 year old female with pmhx of HTN, DM II, ventral hernia/colonic obstruction with 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 Plan: 1. Incarcerated recurrent incisional/ventral hernia - Open hernia repair 01/27 - Maintain drain, VNS on discharge - Pre and post noted, requires continued PT and supplemental o2 therapy, will repeat again tomorrow (4L w/ambulation) 2. Metabolic Alkalosis - Likely d/t SHIRA - Encourage Bipap HS 3. Acute respiratory failure likely 2/2 Obesity hypoventilation syndrome - Resolved, stable on NC - See above 4. HTN - Stable - Losartan 50mg daily 5. DM II - Hgb a1c 8.6 - Metformin 1000mg bid 6. Lactic acidosis - Resolved Visit type - Emergency Visit Emergency Visit: Yes ED Registration Date: 01/27/17 Care time: The patient presented to the Emergency Department on the above date and was hospitalized for further evaluation of their emergent condition. - New Patient This patient is new to me today: No - Critical Care Critical Care patient: No
[2017-02-02] MEDS: metFORMIN HCL 500 MG TABLET (FP) PO SCH (06:19)
[2017-02-02] MEDS: HEPARIN NA (PORCINE) 5,000 UNITS/ML 1ML VIAL SQ SCH ×2 (06:19→14:07)
[2017-02-02 08:45] VITALS: TEMP 97.8
[2017-02-02] MEDS: LOSARTAN POTASSIUM 50 MG TABLET (FP) PO SCH (09:35)
--- NOTE | 2017-02-02 11:18 | DS ---
Physical Exam: SUBJECTIVE: Patient seen and examined. She is eager to go home, she wants to shower, she is feeling well. OBJECTIVE: Vital Signs Period Temp Pulse Resp BP Sys/Desai Pulse Ox Last 24 Hr 97.8 F-98.5 F 88-103 18-20 100-126/46-72 97-97 Laboratory Results - last 24 hr 02/01/17 16:44 POC Glucometer 129 HOSPITAL COURSE: Date of Admission:01/27/17 Date of Discharge: 02/02/17 Minutes to complete discharge: 36 Discharge Summary Reason For Visit: INCARCERATED HERNIA Current Active Problems Hernia (Acute) Hypertension (Acute) Incarcerated hernia (Acute) Lactic acid acidosis (Acute) Hospital Course: Initial Hospital Course: Briefly, this 66 year old female with pmhx of hypertension, NIDDM, ventral hernia/colonic obstruction with 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 On Friday, January 25, 2017, she developed nausea and vomiting. At first, she attributed her symptoms to food poisoning. However, on Friday, January, she had ongoing nausea, decreased appetite with diarrhea and came to the ED with worsening abdominal pain. 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 Plan: 1. Incarcerated recurrent incisional/ventral hernia - Open hernia repair 01/27 - Maintain drain, VNS on discharge - Requires oxygen, particularly w/ ambulation - Office surgery follow up 2. Metabolic Alkalosis - Likely d/t SHIRA - Encourage Bipap HS 3. Acute respiratory failure likely 2/2 Obesity hypoventilation syndrome - Resolved, stable on NC - See above 4. HTN - Stable - Losartan 50mg daily - Decrease ASA to 81mg daily 5. DM II - Hgb a1c 8.6 - Metformin 1000mg bid 6. Lactic acidosis - Resolved Dispo: - Home with VNS and oxygen - Resume home meds - Follow up with Dr. Calvin and PCP in 1 week Condition: Stable - Instructions Diet, Activity, Other Instructions: Please return to the ED for any new, persistent, or worsening symptoms. Follow up with pcp in 1 week Follow up with Dr. Calvin in office next week Maintain drain You may shower, cover incision site with plastic to keep water away, and keep back to water while showering Use oxygen while ambulating Referrals: Bj Fritz MD [Primary Care Provider] - Eugenio Calvin MD [Staff Physician] - Disposition: VNS/HOME HEALTH CARE - Home Medications Comprehensive Discharge Medication List: Ambulatory Orders Losartan Potassium 50 mg PO DAILY 04/06/12 Metformin HCl [Glucophage] 1,000 mg PO BID 04/06/12 D3-5000 5,000 iu PO DAILY 01/27/17 Aspirin [ASA -] 81 mg PO DAILY #30 tab.chew 02/02/17 This patient is new to me today: No Emergency Visit: Yes ED Registration Date: 01/27/17 Care time: The patient presented to the Emergency Department on the above date and was hospitalized for further evaluation of their emergent condition. Critical Care patient: No - Discharge Referral Referred to [facility] No
--- NOTE | 2017-02-02 14:04 | PN ---
Progress Note (short form) - Note Progress Note: Attending Surgeon POD #6 No c/o; ambulating/tolerating diet/having BM's ;pain controlled abdomen-benign; incision c/d/i/; ASHLEY in place; outp noted. IMP: doing well PLAN: Drain d/c'ed; d/c to office f/u next week. Eugenio Calvin MD FACS
[2017-02-02 14:07] VITALS: BP 132/80; PULSE 103
== END 2017-02-02 14:15 | disposition home health service (06) | DRG 335 ==
LOC: FER 09:07 → FM/S 16:58 → JSAMEDAYSX 18:15 → JICU 01-28 00:35 → J6S 01-28 13:00
PROVIDERS: ADMIT Internal Medicine; ATTEND Nurse Practitioner Acute Care
PROC: 0DNW0ZZ Release Peritoneum, Open Approach (ICD-10-PCS; 2017-01-27)
PROC: 0WUF0JZ Supplement Abdominal Wall with Synthetic Substitute, Open Approach (ICD-10-PCS; principal; 2017-01-27 18:08)
PROC: 5A09457 Assistance with Respiratory Ventilation, 24-96 Consecutive Hours, Continuous Positive Airway Pressure (ICD-10-PCS; 2017-01-28)
PROC: 3E0F7GC Introduction of Other Therapeutic Substance into Respiratory Tract, Via Natural or Artificial Opening (ICD-10-PCS; 2017-01-29)
DX: K43.0 Incisional hernia with obstruction, without gangrene (principal); J96.01 Acute respiratory failure with hypoxia; Z68.43 Body mass index [BMI] 50.0-59.9, adult; E87.2 Acidosis; E87.3 Alkalosis; E11.9 Type 2 diabetes mellitus without complications; I10 Essential (primary) hypertension; J44.9 Chronic obstructive pulmonary disease, unspecified; R11.10 Vomiting, unspecified; R19.7 Diarrhea, unspecified; K21.9 Gastro-esophageal reflux disease without esophagitis; R00.0 Tachycardia, unspecified; E66.01 Morbid (severe) obesity due to excess calories; G47.33 Obstructive sleep apnea (adult) (pediatric); K66.0 Peritoneal adhesions (postprocedural) (postinfection); Z87.891 Personal history of nicotine dependence; Z90.710 Acquired absence of both cervix and uterus
CPT/HCPCS: 36415; 71010-TC; 71250-TC; 74177-TC; 80048; 80053; 81003; 82553; 83036; 83605; 83690; 83735; 83880; 84100; 84484; 85025; 85027; 85610; 86850; 86900; 86901; 87040; 87086; 88302-TC; 93005; 94010; 94640; 94660; 94760; 94761; 99284-25; J1644